=== PATIENT | male | born 1960 | race Caucasian/White ===

== ENCOUNTER 2020-11-19 09:14 | Observation (INO) | payer OTHER ==
[~2020-11-19] VITALS: Ht 180.3 cm; Wt 99.6 kg
[~2020-11-19 09:14] MED LIST changes: -AMOCLA875 PO; -LISI20 PO; -Norco 5-325 Ta1 EACH PO
[2020-11-19] MEDS ORDERED: LISI20 PO (10:16)
[2020-11-19 13:17] LABS: Influenza A, PCR NEGATIVE (NEGATIVE); Influenza B, PCR NEGATIVE (NEGATIVE); Resp Syncytial Virus, PCR NEGATIVE (NEGATIVE); SARS-Cov-2 (COVID-19) PCR, MMC NEGATIVE (NEGATIVE)
--- NOTE | 2020-11-19 13:57 | NUR ---
PATIENT WAS BROUGHT TO THE D/S AREA FOR HIS PROCEDURE. Ambulatory in Day Surgery Surgical site prepped with 2% Chlorhexidine cloth wipe. Yaya Paws warming gown applied. History, Chart, Medications and Allergies reviewed before start of procedure.Lungs clear T/O to Auscultation. Patient confirms NPO status and agrees with scheduled surgery. Pre-Op teaching done. Pt verbalizes understanding. Patient States Post-Procedure ride home has been arranged.
--- NOTE | 2020-11-19 17:03 | NUR ---
Shift summary Patient had lap appy today. Dermabond glue CDI. Patient tolerating sips of clear liquid. Post op VS in progress and WNL. Patient tolerating 0.5mg IV Dilaudid for pain control. Call light within patient reach.
--- NOTE | 2020-11-20 04:55 | NUR ---
POD 1 S/P LAP APPY. PT VSS T/O NIGHT. INCISIONS CDI; NO REDNESS/DRNG NOTED. PAIN MGD PER EMAR W/REP RELIEF. PT HASEEB REG PO, NO C/O N/V, IS PASSING FLATUS THIS AM. PT IS VOIDING URINE W/O DIFFICULTY. PT UP INDEP IN ROOM, HASEEB WELL. IV SL THS AM, ABX CONT PER ORDERS.
[2020-11-20 05:36] LABS: Hemoglobin 13.1 g/dL (13.5-17.5); Mean Corpuscular HGB 29.8 pg (26.0-34.0); Mean Corpuscular HGB Conc 34.5 g/dL (31.5-36.5); Mean Corpuscular Volume 87 fL (80-100); Mean Platelet Volume 8.9 fL (9.1-12.4); Platelet Count 177 K/mm3 (150-400); RDW Coefficient Variation 11.9 % (11.7-14.2); RDW Standard Deviation 38.3 fL (35.1-46.3); Red Blood Cell Count 4.39 M/mm3 (4.30-5.90); White Blood Cell Count 17.66 K/mm3 (4.00-11.30)
--- NOTE | 2020-11-20 05:47 | NUR ---
PT REP UVULA FEELS SWOLLEN THIS AM. PT DENIES SOB OR SWALLOWING DIFFICULTIES. PT REPORTS THIS HAS HAPPENED BEFORE AND IS REQUESTING BENADRYL IT HAS HELPED IN THE PAST.
[2020-11-20 06:02] LABS: Anion Gap 4 mmol/L (6-16); Blood Urea Nitrogen 18 mg/dL (8-24); Bun/Creatinine Ratio 20.8 (12.0-20.0); CO2, Blood 28 mmol/L (21-32); Calcium, Blood 8.2 mg/dL (8.5-10.1); Chloride, Blood 106 mmol/L (98-108); Creatinine, Blood 0.87 mg/dL (0.60-1.20); Glomerular Filtration Rate >60 (60-); Glucose, Blood 171 mg/dL (70-99); Potassium, Blood 4.1 mmol/L (3.5-5.5); Sodium, Blood 138 mmol/L (136-145)
--- NOTE | 2020-11-20 07:57 | NUR ---
pt sleeping stated h/a is better and swelling to the uvula is down also overal abd pain is better offered pain meds pt declined at this time
--- NOTE | 2020-11-20 10:12 | NUR ---
dr matute by to see pt no discharge at this time stated she will check on him this afternoon for discharge
[2020-11-20] MEDS ORDERED: AMOCLA875 PO (10:33)
[2020-11-20] MEDS ORDERED: Norco 5-325 Ta1 EACH PO (10:34)
--- NOTE | 2020-11-20 11:34 | NUR ---
discharge instructions reviewed with pt verbalized rx given no acute changes pt wanting to drive home has not taken any narcotics this shift
== END 2020-11-20 11:50 | disposition home or self-care (01) ==
LOC: ER 09:14 → CT 09:14 → ERHOLD 09:15 → EDSTATUS 09:30 → CT 09:30 → SURS 15:20
PROVIDERS: ADMIT Surgery
DX: K35.32 Acute appendicitis with perforation, localized peritonitis, and gangrene, without abscess (principal); I10 Essential (primary) hypertension
CPT/HCPCS: 0241U; 36415; 74177; 80048; 83036; 85027; 88304; 93005; 93010; 96365-59; 96366; 96366-59; 96367; 96375; 96375-59; 99285-25; A9270; G0378; J0696; J1100; J1170; J1200; J2250; J2405; J2704; J3010; J7120; Q9967

== ENCOUNTER → 2020-11-19 | Outpatient (CLI) | payer OTHER ==
[~2020-11-19] MED LIST: AMOCLA875 PO; HYDCHL12.5; Keflex500 MG PO; LISI20 PO; LORA10; Norco 5-325 Ta1 EACH PO; Percocet 5-3251 EACH PO
[2020-11-19 08:38] LABS: BASOPHILS ABSOLUTE AUTO 0.02 K/mm3 (0.00-0.23); BASOPHILS PERCENT AUTO 0 % (0-2); EOSINOPHILS PERCENT AUTO 0 % (0-6); Hematocrit 41.2 % (37.0-53.0); Hemoglobin 14.8 g/dL (13.5-17.5); IMMATURE GRAN PERCENT AUTO 1 % (0-1); LYMPHOCYTES ABSOLUTE AUTO 1.13 K/mm3 (0.84-5.20); LYMPHOCYTES PERCENT AUTO 6 % (21-46); MONOCYTES ABSOLUTE AUTO 1.32 K/mm3 (0.16-1.47); MONOCYTES PERCENT AUTO 7 % (4-13); Mean Corpuscular HGB 30.6 pg (26.0-34.0); Mean Corpuscular HGB Conc 35.9 g/dL (31.5-36.5); Mean Corpuscular Volume 85 fL (80-100); Mean Platelet Volume 8.4 fL (9.1-12.4); NEUTROPHILS ABSOLUTE AUTO 16.43 K/mm3 (1.96-9.15); NEUTROPHILS PERCENT AUTO 86 % (41-73); Platelet Count 168 K/mm3 (150-400); RDW Standard Deviation 37.3 fL (35.1-46.3); Red Blood Cell Count 4.83 M/mm3 (4.30-5.90)
[2020-11-19 08:47] LABS: Alanine Aminotransfer (ALT/SGP 39 U/L (12-78); Albumin, Blood 3.6 g/dL (3.4-5.0); Albumin/Globulin Ratio 0.9 (0.8-1.8); Alk Phos 60 U/L (40-126); Amylase, Blood 50 U/L (25-115); Anion Gap 9 mmol/L (6-16); Aspartate Aminotrans (AST/SGOT 21 U/L (12-37); Bilirubin, Total 1.1 mg/dL (0.1-1.0); Blood Urea Nitrogen 16 mg/dL (8-24); CO2, Blood 27 mmol/L (21-32); Calcium, Blood 8.9 mg/dL (8.5-10.1); Chloride, Blood 101 mmol/L (98-108); Creatinine, Blood 1.14 mg/dL (0.60-1.20); Glomerular Filtration Rate >60 (60-); Glucose, Blood 212 mg/dL (70-99); Sodium, Blood 137 mmol/L (136-145); Total Protein, Blood 7.6 g/dL (6.4-8.2)
== END | disposition home or self-care (01) ==
LOC: LAB SHORT 08:33 → PLD 08:33
PROVIDERS: General Practice
DX: R10.31 Right lower quadrant pain (principal)
CPT/HCPCS: 80053; 82150; 85025

== ENCOUNTER 2021-05-18 08:36 | Day surgery (SDC) | payer OTHER ==
[~2021-05-18] VITALS: Ht 180.3 cm; Wt 92.0 kg
[~2021-05-18 08:36] MED LIST changes: +AMOCLA875 PO; +CINNAMON BARK; +LISI20 PO; +LORA10ER PO; +MULTIPLE VITAM1 EACH PO; +Norco 5-325 Ta1 EACH PO; +Prinivil10 MG PO; +VITAMIN D325 MC3 PO
--- NOTE | 2021-05-18 09:27 | NUR ---
05/18/21 0927 Kinga Al PROPOFOL ADMINISTERED BY [email or web address]
== END 2021-05-18 10:28 | disposition home or self-care (01) ==
LOC: ORSCSDS 08:36
PROVIDERS: Surgery
PROC: 0DJD8ZZ Inspection of Lower Intestinal Tract, Via Natural or Artificial Opening Endoscopic (ICD-10-PCS; principal; 2021-05-18 10:00)
DX: Z12.11 Encounter for screening for malignant neoplasm of colon (principal); Z86.010 Personal history of colon polyps; I25.2 Old myocardial infarction; I10 Essential (primary) hypertension; Z79.899 Other long term (current) drug therapy
CPT/HCPCS: J2405; J2704; J7120